=== PATIENT | female | born 1995 | race African-American/Black ===

== ENCOUNTER 2017-05-08 12:39 | Emergency (ER) | payer SELFPAY ==
[2017-05-08] MEDS ORDERED: Lidocaine 4% Cream 5 GM TUBE w/ Tegaderm ONE (13:00)
[2017-05-08] MEDS ORDERED: Bacitracin Zinc 1 Packet ONE (13:32)
== END 2017-05-08 13:37 | disposition home or self-care (01) ==
LOC: ERS 12:39
DX: L03.011 Cellulitis of right finger (principal)
CPT/HCPCS: 10060

== ENCOUNTER 2017-06-23 19:11 | Emergency (ER) | payer SELFPAY ==
[2017-06-23] MEDS ORDERED: Fluorescein Opthalmic Strip ONE (19:27)
[2017-06-23] MEDS ORDERED: Proparacaine 0.5% Opth 15 ML BOT ONE (19:28)
[2017-06-23] MEDS ORDERED: Gentamicin Ophth Soln 0.3% 5 ml Bottle ONE (19:42)
== END 2017-06-23 19:52 | disposition home or self-care (01) ==
LOC: ERS 19:11
DX: H10.9 Unspecified conjunctivitis (principal)
CPT/HCPCS: 99283

== ENCOUNTER 2019-04-04 19:37 | Emergency (ER) | payer SELFPAY ==
[2019-04-04] MEDS ORDERED: Ondansetron ODT 4 MG TAB ONE (21:24)
== END 2019-04-04 21:54 | disposition home or self-care (01) ==
LOC: ERS 19:37
DX: J11.1 Influenza due to unidentified influenza virus with other respiratory manifestations (principal); E66.9 Obesity, unspecified
CPT/HCPCS: 87804; 99284; Q0162

== ENCOUNTER 2019-06-22 18:46 | Emergency (ER) | payer SELFPAY | END 2019-06-22 20:20 | disposition home or self-care (01) | LOC: ERS 18:46 | DX: J06.9 Acute upper respiratory infection, unspecified (principal); E66.9 Obesity, unspecified | CPT/HCPCS: 99281 ==

== ENCOUNTER 2019-08-16 21:23 | Emergency (ER) | payer SELFPAY ==
[2019-08-16 21:56] LABS: Bilirubin Negative (Negative); Blood, Urine Negative (Negative); Clarity Turbid (Clear); Glucose, Urine (Dipstick) Normal (Negative); Leukocyte 250 Leu/uL (Negative); Nitrite Negative (Negative); Pregnancy Test - Urine (BHCG) Negative (Negative); Pregu Control Background? CLEAR/WHITE (CLR/WHITE); Pregu Control Bar Appear? YES (CONTROL BAR); Protein, Urine (Dipstick) 100 mg/dL (Neg-Trace); RBC/HPF 0-3 HPF (0-3); Specific Gravity 1.032 (1.002-1.036)
[2019-08-16 21:57] LABS: Bacteria/HPF 2+ HPF (None Seen)
[2019-08-16 22:28] LABS: #Lymphocytes 2.6 thou/uL (1.20-3.40); #Monocytes 0.5 thou/uL (0.11-0.59); #Neutrophils 5.1 thou/uL (1.40-6.50); %Basophils 0.5 % (0.0-1.0); %Eosinophils 0.4 % (0.0-10.0); %Lymphocytes 31.7 % (21.0-51.0); %Neutrophils 61.3 % (42.0-75.0); Anisocytosis SLIGHT = 6-15 cells (100X) (0-5/hpf); Hemoglobin 9.6 g/dL (12.0-16.0); MDiff Complete? YES; Mean Corpuscular HGB CONC 28.9 g/dL (32.0-36.0); Mean Corpuscular Hemoglobin 23.1 pg (27.0-31.0); Mean Corpuscular Volume 79.8 fL (78.0-98.0); Mean Platelet Volume 11.1 fL (7.4-10.4); Platelet Count 318 thou/uL (130-400); RBC Distribution Width 16.7 % (11.5-14.5); Red Blood Cell (RBC) Count 4.14 mill/uL (4.20-5.40); White Blood Cell (WBC) Count 8.3 thou/uL (4.8-10.8)
[2019-08-16 22:31] LABS: ALT (SGPT) 12 U/L (8-55); AST (SGOT) 14 U/L (5-34); Albumin 4.1 g/dL (3.5-5.0); Alkaline Phosphatase 95 U/L (40-110); Anion Gap 15 mmol/L (10-20); BUN (Urea Nitrogen) 10 mg/dL (7.0-18.7); Bilirubin, Total Less than 0.2 mg/dL (0.2-1.2); Calc. Creatinine Clearance 0 mL/min (70-130); Calcium 8.8 mg/dL (7.8-10.44); Carbon Dioxide 23 mmol/L (22-29); Chloride 106 mmol/L (98-107); Estimated GFR-MDRD 88; Globulin 3.7 g/dL (2.4-3.5); Glucose 98 mg/dL (70-105); Lipase 25 U/L (8-78); Potassium 3.9 mmol/L (3.5-5.1); Protein, Total 7.8 g/dL (6.0-8.3); Sodium 140 mmol/L (136-145)
== END 2019-08-17 00:06 | disposition home or self-care (01) ==
LOC: ERS 21:23
DX: R10.11 Right upper quadrant pain (principal); R10.13 Epigastric pain
CPT/HCPCS: 36415; 80053; 81003; 81015; 81025; 83690; 85025; 99284

== ENCOUNTER 2019-08-22 07:51 | Emergency (ER) | payer OTHER, SELFPAY ==
[2019-08-22] MEDS ORDERED: Ibuprofen 800 MG TAB ONE (08:19)
== END 2019-08-22 08:32 | disposition home or self-care (01) ==
LOC: ERS 07:51
DX: S16.1XXA Strain of muscle, fascia and tendon at neck level, initial encounter (principal); M54.6 Pain in thoracic spine; V89.2XXA Person injured in unspecified motor-vehicle accident, traffic, initial encounter
CPT/HCPCS: 99283; L0120

== ENCOUNTER 2019-10-31 17:33 | Emergency (ER) | payer BC, OTHER ==
[2019-11-02 12:09] LABS: SARS-CoV-2 MS2 Positive; SARS-CoV-2 N Gene Negative; SARS-CoV-2 S Gene Negative; SARS-CoV-2 by NAA Not Detected (NotDetected); SARS-CoV-2 orf1ab Negative
== END 2019-10-31 18:12 | disposition home or self-care (01) ==
LOC: ERS 17:33
DX: Z20.828 Contact with and (suspected) exposure to other viral communicable diseases (principal)
CPT/HCPCS: 87635; 99283; U0003

== ENCOUNTER 2021-09-11 11:31 | Emergency (ER) | payer BC, SELFPAY | END 2021-09-11 13:02 | disposition home or self-care (01) | LOC: ERS 11:31 | DX: L03.012 Cellulitis of left finger (principal) | CPT/HCPCS: 99283 ==

== ENCOUNTER 2022-01-22 14:22 | Emergency (ER) | payer BC, SELFPAY ==
[2022-01-22] MEDS ORDERED: Mag-Al 1200 mg/1200 mg/30 ML UDCUP ONE (15:27)
[2022-01-22] MEDS ORDERED: Dicyclomine 20 MG/2 ML VIAL ONE (15:27)
[2022-01-22] MEDS ORDERED: Lidocaine Viscous Sol 2% 15 ml UD Cup ONE (15:27)
[2022-01-22 15:41] LABS: #Lymphocytes 1.2 thou/uL (1.20-3.40); #Monocytes 0.4 thou/uL (0.11-0.59); #Neutrophils 4.6 thou/uL (1.40-6.50); %Basophils 0.4 % (0.0-1.0); %Eosinophils 0.4 % (0.0-10.0); %Lymphocytes 19.4 % (21.0-51.0); %Monocytes 6.3 % (0.0-10.0); %Neutrophils 73.5 % (42.0-75.0); Hemoglobin 9.8 g/dL (12.0-16.0); Mean Corpuscular HGB CONC 30.5 g/dL (32.0-36.0); Mean Corpuscular Hemoglobin 24.4 pg (27.0-31.0); Mean Platelet Volume 10.8 fL (7.4-10.4); Platelet Count 304 thou/uL (130-400); Red Blood Cell (RBC) Count 4.01 mill/uL (4.20-5.40); White Blood Cell (WBC) Count 6.2 thou/uL (4.8-10.8)
[2022-01-22 15:51] LABS: Bilirubin Negative (Negative); Blood, Urine Negative (Negative); Clarity Clear (Clear); Glucose, Urine (Dipstick) Normal (Negative); Ketone, Urine Negative (Negative); Leukocyte Negative Leu/uL (Negative); Nitrite Negative (Negative); Protein, Urine (Dipstick) Negative (Neg-Trace); Urobilinogen Normal mg/dL (Less than 2); pH, Urine 5.5 (5.0-9.0)
[2022-01-22 15:53] LABS: ALT (SGPT) 48 U/L (8-55); AST (SGOT) 25 U/L (5-34); Albumin 3.8 g/dL (3.5-5.0); Alkaline Phosphatase 103 U/L (40-110); Anion Gap 12 mmol/L (10-20); BUN (Urea Nitrogen) 9 mg/dL (7.0-18.7); Bilirubin, Total 0.4 mg/dL (0.2-1.2); Calc. Creatinine Clearance 0 mL/min (70-130); Calcium 8.7 mg/dL (7.8-10.44); Carbon Dioxide 21 mmol/L (22-29); Chloride 107 mmol/L (98-107); Estimated GFR 105; Globulin 3.6 g/dL (2.4-3.5); Glucose 111 mg/dL (70-105); Lipase 16 U/L (8-78); Potassium 4.2 mmol/L (3.5-5.1); Protein, Total 7.4 g/dL (6.0-8.3); Sodium 136 mmol/L (136-145)
[2022-01-22 15:53] LABS: Pregnancy Test - Urine (BHCG) POSITIVE (Negative); Pregu Control Background? CLEAR/WHITE (CLR/WHITE); Pregu Control Bar Appear? YES (CONTROL BAR)
== END 2022-01-22 16:31 | disposition home or self-care (01) ==
LOC: ERS 14:22
DX: O21.9 Vomiting of pregnancy, unspecified (principal); O99.891 Other specified diseases and conditions complicating pregnancy; R10.84 Generalized abdominal pain; R19.7 Diarrhea, unspecified; R10.812 Left upper quadrant abdominal tenderness; Z3A.01 Less than 8 weeks gestation of pregnancy
CPT/HCPCS: 36415; 80053; 81003; 81025; 83690; 85025; 96372; 99284

== ENCOUNTER 2022-05-29 12:09 | Outpatient (CLI) | payer OTHER | END 2022-05-29 12:10 | disposition home or self-care (01) | LOC: BICULT 12:09 | PROVIDERS: ATTEND Advanced Practice Midwife | DX: Z34.92 Encounter for supervision of normal pregnancy, unspecified, second trimester (principal); Z3A.23 23 weeks gestation of pregnancy | CPT/HCPCS: 76805 ==

== ENCOUNTER 2023-08-15 23:02 | Emergency (ER) | payer MEDICAID | END 2023-08-16 01:54 | disposition left against medical advice (07) | LOC: ERS 23:02 | DX: Z53.21 Procedure and treatment not carried out due to patient leaving prior to being seen by health care provider (principal) ==

== ENCOUNTER 2023-08-21 11:16 | Emergency (ER) | payer MEDICAID ==
[2023-08-21 11:40] LABS: #Basophils 0.03 10x3/uL (0.0-0.2); %Basophils 0.5 % (0.0-1.0); %Eosinophils 0.5 % (0.0-10.0); %Lymphocytes 27.5 % (21.0-51.0); %Monocytes 4.2 % (0.0-10.0); %Neutrophils 67.1 % (42.0-75.0); Hematocrit 35.4 % (36.0-47.0); Hemoglobin 10.4 g/dL (12.0-16.0); Mean Corpuscular HGB CONC 29.4 g/dL (32.0-36.0); Mean Corpuscular Hemoglobin 24.1 pg (27.0-31.0); Mean Corpuscular Volume 81.9 fL (78.0-98.0); Mean Platelet Volume 11.8 fL (7.4-10.4); Platelet Count 337 10x3/uL (130-400); RBC Distribution Width 16.2 % (11.5-14.5); Red Blood Cell (RBC) Count 4.32 mill/uL (4.20-5.40)
[2023-08-21 12:11] LABS: ALT (SGPT) 16 U/L (8-55); AST (SGOT) 13 U/L (5-34); Albumin 3.7 g/dL (3.5-5.0); Alkaline Phosphatase 102 U/L (40-110); Anion Gap 12 mmol/L (10-20); BUN (Urea Nitrogen) 10 mg/dL (7.0-18.7); Bilirubin, Total 0.3 mg/dL (0.2-1.2); Calc. Creatinine Clearance 0 mL/min (70-130); Calcium 9.3 mg/dL (7.8-10.44); Carbon Dioxide 23 mmol/L (22-29); Chloride 106 mmol/L (98-107); Estimated GFR 106; Globulin 4.2 g/dL (2.4-3.5); Glucose 108 mg/dL (70-105); Lipase 12 U/L (8-78); Potassium 3.9 mmol/L (3.5-5.1); Protein, Total 7.9 g/dL (6.0-8.3); Sodium 137 mmol/L (136-145)
[2023-08-21 12:44] LABS: Bilirubin Negative (Negative); Blood, Urine Negative (Negative); Glucose, Urine (Dipstick) Negative (Negative); Ketone, Urine Negative (Negative); Leukocyte Negative (Negative); Nitrite Negative (Negative); Protein, Urine (Dipstick) Negative (Neg-Trace); Specific Gravity, Urine 1.015 (1.005-1.030); Urobilinogen 0.2 mg/dL (Less than 2)
[2023-08-21 13:00] LABS: Clarity Hazy (Clear)
[2023-08-21 13:01] LABS: Pregnancy Test - Urine (BHCG) Negative (Negative); Pregu Control Background? CLEAR/WHITE (CLR/WHITE); Pregu Control Bar Appear? YES (CONTROL BAR); Specific Gravity 1.015 (1.002-1.036)
[2023-08-21 13:19] LABS: CAUTI Indications for Culture Pelvic or flank pain; RBC/HPF None Seen HPF (0-3); WBC/HPF 0-3 HPF (0-3)
[2023-08-21 13:20] LABS: Bacteria/HPF 1+ HPF (None Seen)
[2023-08-21 13:21] LABS: Urine Culture Reflex No No
== END 2023-08-21 14:09 | disposition home or self-care (01) ==
LOC: ERS 11:16
DX: K80.20 Calculus of gallbladder without cholecystitis without obstruction (principal)
CPT/HCPCS: 36415; 76705; 80053; 81001; 81025; 83690; 85025

== ENCOUNTER 2024-10-20 14:41 | Emergency (ER) | payer SELFPAY | END 2024-10-20 16:32 | disposition home or self-care (01) | LOC: ERS 14:41 | DX: R10.11 Right upper quadrant pain (principal) | CPT/HCPCS: 99283 ==